=== PATIENT | male | born 1985 | race Caucasian/White ===

== ENCOUNTER 2023-12-01 07:23 | Emergency (ER) | payer BC ==
[~2023-12-01] VITALS: Ht 175.3 cm; Wt 104.4 kg
[~2023-12-01 07:23] MED LIST: ACETAMINOPHEN-1 EAC1 PO; FLOVENT HFA10.6 GM INH; NORCO 7.5-3251 EACH PO; TOPROL XL25 MG PO; ULTRAM50 MG PO; XANAX0.5 MG PO; ZOLOFT25 MG PO
[2023-12-01 07:59] VITALS: BP 140/122
== END 2023-12-01 07:56 | disposition home or self-care (01) ==
LOC: ED 07:23
DX: S60.221A Contusion of right hand, initial encounter (principal); I10 Essential (primary) hypertension; J45.909 Unspecified asthma, uncomplicated; F17.200 Nicotine dependence, unspecified, uncomplicated; W23.0XXA Caught, crushed, jammed, or pinched between moving objects, initial encounter; Z88.5 Allergy status to narcotic agent; Z79.899 Other long term (current) drug therapy
CPT/HCPCS: 73130; 99283-25; 99406

== ENCOUNTER 2024-05-02 07:01 | Emergency (ER) | payer BC ==
[~2024-05-02] VITALS: Ht 175.3 cm; Wt 99.8 kg
[2024-05-02] MEDS ORDERED: CLINDAMYCIN HC300 MG PO (07:15)
[2024-05-02 07:43] LABS: BASOPHILS 0.5 % (0-2); HEMATOCRIT 42.2 % (35.0-50.0); HEMOGLOBIN 15.1 g/dL (12.0-18.0); LYMPHOCYTES 17.5 % (24-44); MCH 30.6 (27-36); MCHC 35.8 g/dl (30-36); MCV 85.7 fl (81-99); MONOCYTES 6.8 % (0-12); NEUTROPHILS 73.2 % (39-80); PLATELET COUNT 273 K/uL (140-440); RBC 4.92 M/ul (4.3-5.7)
[2024-05-02] MEDS ORDERED: NICOTINE 21 MG/24 HR 1 EA TDSY TD ONE (07:45)
[2024-05-02] MEDS ORDERED: AMP/SULBACTAM SOD 3 GM in SODIUM CHLORIDE 0.9% 100 ML IV ONE (07:45)
[2024-05-02] MEDS ORDERED: KETOROLAC TROMETHAMINE 15 MG/ML VIAL IV ONE (07:45)
[2024-05-02 07:58] LABS: ALBUMIN 3.8 g/dL (3.4-5.0); ALBUMIN/GLOBULIN RATIO 0.9 (1.1-2.4); ANION GAP 16.6 (7-21); BILIRUBIN, TOTAL 0.3 ng/dL (0.2-1.0); BUN/CREATININE RATIO 18.66 (6.0-28.6); CALCIUM 8.9 mg/dL (8.5-10.1); CREATININE, SERUM 0.75 mg/dL (0.70-1.30); POTASSIUM 4.6 mmol/L (3.5-5.1)
[2024-05-02 08:29] LABS: LACTIC ACID, BLOOD 1.1 mmol/L (0.4-2.0)
[2024-05-02] MEDS ORDERED: HYDROCODON-ACE1 EA10 PO (09:12)
[2024-05-02] MEDS ORDERED: NICOTINE1 EACH TD (09:12)
[2024-05-02] MEDS ORDERED: ONDANSETRON ODT8 MG PO (09:12)
[2024-05-02] MEDS ORDERED: PERIDEX473 M1 MM (09:12)
[2024-05-02 09:17] VITALS: BP 127/103
== END 2024-05-02 09:17 | disposition home or self-care (01) ==
LOC: ED 07:01
PROVIDERS: Emergency Medicine
DX: K04.7 Periapical abscess without sinus (principal); F17.200 Nicotine dependence, unspecified, uncomplicated; I10 Essential (primary) hypertension; J45.909 Unspecified asthma, uncomplicated; Z88.5 Allergy status to narcotic agent; Z88.8 Allergy status to other drugs, medicaments and biological substances; Z79.899 Other long term (current) drug therapy
CPT/HCPCS: 36415; 70491; 80053; 83605; 85025; 99284-25; J0295; J1885; Q9967